=== PATIENT | female | born 1945 | race Caucasian/White ===

== ENCOUNTER → 2021-03-12 | Outpatient (CLI) | payer MEDICARE, OTHER ==
--- NOTE | 2021-03-12 16:31 | XR ---
EXAMINATION TYPE: XR cervical spine comp DATE OF EXAM: 03/12/2021 COMPARISON: None HISTORY: Cervicalgia TECHNIQUE: 5 view cervical spine FINDINGS: There is a grade 1 spondylolisthesis of C3 anteriorly on C4. Mild subluxation of C4 on C5 i s present. Posterior spinal lamellar line appears intact. There is loss of disc height at C4-5 C5-6 C 6-7. Anterior vertebral body spurring is present C4 and C5. Foraminal narrowing is noted to moderate degree at C4-5 on the left. Incidental note is made of vascular calcification left carotid region. IMPRESSION: 1. Advanced degenerative disc changes especially through the mid cervical spine. 2. Spondylolisthesis of C3 on C4 and milder C4 on C5.
== END | disposition home or self-care (01) ==
LOC: RADXRYALE 16:02
PROVIDERS: ATTEND Family Medicine
DX: M47.812 Spondylosis without myelopathy or radiculopathy, cervical region (principal); M43.12 Spondylolisthesis, cervical region
CPT/HCPCS: 72050

== ENCOUNTER 2021-11-21 16:23 | Inpatient (IN) | payer MEDICARE, OTHER ==
--- NOTE | 2021-11-21 16:42 | ED ---
Abdominal Pain HPI - General Chief Complaint: Abdominal Pain Stated Complaint: Abd pain Time Seen by Provider: 11/21/21 16:25 Source: patient, EMS, RN notes reviewed Mode of arrival: EMS Limitations: no limitations - History of Present Illness Initial Comments: 76-year-old female history of total abdominal hysterectomy who states she had acid yesterday of left-sided abdominal pain sharp in nature sometimes severe sometimes not now she states her hurts when she presses on the area. No overt fevers chills or sweats. She did have episodes nausea vomiting with it. She also has some diarrhea. Currently the pain is 0 unless she presses on it. She has of a family history diverticulitis with a sister and her dad. No other current complaints or modifying factors MD Complaint: abdominal pain - Related Data Allergies Allergy/AdvReac Type Severity Reaction Status Date / Time Iodinated Contrast Media Allergy Anaphylaxis Verified 11/21/21 16:37 Review of Systems ROS Statement: Those systems with pertinent positive or pertinent negative responses have been documented in the HPI. ROS Other: All systems not noted in ROS Statement are negative. Past Medical History History of Any Multi-Drug Resistant Organisms: None Reported Past Surgical History: Hysterectomy, Joint Replacement Additional Past Surgical History / Comment(s): total hysterectomy, bilat total knee replacements, Past Psychological History: No Psychological Hx Reported Smoking Status: Current every day smoker Past Alcohol Use History: Rare Past Drug Use History: None Reported General Exam - General Exam Comments Initial Comments: This is a well-developed well-nourished awake alert oriented 4 female Limitations: no limitations General appearance: alert, in no apparent distress Head exam: Present: atraumatic, normocephalic, normal inspection Eye exam: Present: normal appearance, PERRL, EOMI. Absent: scleral icterus, conjunctival injection, periorbital swelling ENT exam: Present: normal exam, mucous membranes moist Neck exam: Present: normal inspection. Absent: tenderness, meningismus, lymphadenopathy Respiratory exam: Present: normal lung sounds bilaterally. Absent: respiratory distress, wheezes, rales, rhonchi, stridor Cardiovascular Exam: Present: regular rate, normal rhythm, normal heart sounds. Absent: systolic murmur, diastolic murmur, rubs, gallop, clicks GI/Abdominal exam: Present: soft, tenderness (Left lower quadrant tenderness palpation with some voluntary guarding), normal bowel sounds. Absent: distended, guarding, rebound, rigid Rectal exam: Present: deferred Extremities exam: Present: normal inspection, full ROM, normal capillary refill. Absent: tenderness, pedal edema, joint swelling, calf tenderness Back exam: Present: normal inspection Neurological exam: Present: alert, oriented X3, CN II-XII intact Psychiatric exam: Present: normal affect, normal mood Skin exam: Present: warm, dry, intact, normal color. Absent: rash Course Vital Signs 11/21/21 11/21/21 11/21/21 16:24 17:00 18:00 Pulse Rate 79 72 67 Respiratory 18 20 18 Rate Blood Pressure 133/83 128/80 131/88 O2 Sat by Pulse 91 L 94 L 95 Oximetry Medical Decision Making - Medical Decision Making I did discuss findings with the patient family patient is demonstrating increased pain to the left lower quadrant area on further evaluation she states she was having pain with movement and upright positioning yesterday and today. She will be admitted for IV antibiotics and fluids. I did discuss the case with Dr. Trimble - Lab Data Result diagrams: 11/21/21 16:41 11/21/21 16:41 Lab Results 11/21/21 11/21/21 11/21/21 Range/Units 16:41 16:41 16:41 WBC 16.9 H (3.8-10.6) k/uL RBC 5.01 (3.80-5.40) m/uL Hgb 15.8 (11.4-16.0) gm/dL Hct 49.3 H (34.0-46.0) % MCV 98.4 (80.0-100.0) fL MCH 31.6 (25.0-35.0) pg MCHC 32.1 (31.0-37.0) g/dL RDW 13.0 (11.5-15.5) % Plt Count 246 (150-450) k/uL MPV 7.9 Neutrophils % 86 % Lymphocytes % 7 % Monocytes % 4 % Eosinophils % 2 % Basophils % 1 % Neutrophils # 14.6 H (1.3-7.7) k/uL Lymphocytes # 1.2 (1.0-4.8) k/uL Monocytes # 0.7 (0-1.0) k/uL Eosinophils # 0.3 (0-0.7) k/uL Basophils # 0.1 (0-0.2) k/uL PT 10.0 (9.0-12.0) sec INR 0.9 (<1.2) APTT 21.1 L (22.0-30.0) sec Sodium (137-145) mmol/L Potassium (3.5-5.1) mmol/L Chloride (98-107) mmol/L Carbon Dioxide (22-30) mmol/L Anion Gap mmol/L BUN (7-17) mg/dL Creatinine (0.52-1.04) mg/dL Est GFR (CKD-EPI)AfAm (>60 ml/min/1.73 sqM) Est GFR (CKD-EPI)NonAf (>60 ml/min/1.73 sqM) Glucose (74-99) mg/dL Plasma Lactic Acid Royer (0.7-2.0) mmol/L Calcium (8.4-10.2) mg/dL Total Bilirubin (0.2-1.3) mg/dL AST (14-36) U/L ALT (4-34) U/L Alkaline Phosphatase (38-126) U/L Troponin I (0.000-0.034) ng/mL Total Protein (6.3-8.2) g/dL Albumin (3.5-5.0) g/dL Amylase (30-110) U/L Lipase (23-300) U/L Urine Color Yellow Urine Appearance Cloudy H (Clear) Urine pH 5.5 (5.0-8.0) Ur Specific [place] 1.021 (1.001-1.035) Urine Protein Trace H (Negative) Urine Glucose (UA) Negative (Negative) Urine Ketones Negative (Negative) Urine Blood Trace H (Negative) Urine Nitrite Negative (Negative) Urine Bilirubin Negative (Negative) Urine Urobilinogen 2.0 (<2.0) mg/dL Ur Leukocyte Esterase Negative (Negative) Urine RBC 4 (0-5) /hpf Urine WBC 1 (0-5) /hpf Ur Squamous Epith Cells 4 (0-4) /hpf Urine Bacteria Occasional H (None) /hpf Hyaline Casts 34 H (0-2) /lpf Urine Mucus Rare H (None) /hpf 11/21/21 11/21/21 11/21/21 Range/Units 16:41 16:41 16:41 WBC (3.8-10.6) k/uL RBC (3.80-5.40) m/uL Hgb (11.4-16.0) gm/dL Hct (34.0-46.0) % MCV (80.0-100.0) fL MCH (25.0-35.0) pg MCHC (31.0-37.0) g/dL RDW (11.5-15.5) % Plt Count (150-450) k/uL MPV Neutrophils % % Lymphocytes % % Monocytes % % Eosinophils % % Basophils % % Neutrophils # (1.3-7.7) k/uL Lymphocytes # (1.0-4.8) k/uL Monocytes # (0-1.0) k/uL Eosinophils # (0-0.7) k/uL Basophils # (0-0.2) k/uL PT (9.0-12.0) sec INR (<1.2) APTT (22.0-30.0) sec Sodium 139 (137-145) mmol/L Potassium 3.9 (3.5-5.1) mmol/L Chloride 111 H (98-107) mmol/L Carbon Dioxide 19 L (22-30) mmol/L Anion Gap 9 mmol/L BUN 19 H (7-17) mg/dL Creatinine 0.83 (0.52-1.04) mg/dL Est GFR (CKD-EPI)AfAm 80 (>60 ml/min/1.73 sqM) Est GFR (CKD-EPI)NonAf 70 (>60 ml/min/1.73 sqM) Glucose 144 H (74-99) mg/dL Plasma Lactic Acid Royer 0.9 (0.7-2.0) mmol/L Calcium 8.3 L (8.4-10.2) mg/dL Total Bilirubin 0.5 (0.2-1.3) mg/dL AST 29 (14-36) U/L ALT 15 (4-34) U/L Alkaline Phosphatase 112 (38-126) U/L Troponin I <0.012 (0.000-0.034) ng/mL Total Protein 6.2 L (6.3-8.2) g/dL Albumin 3.8 (3.5-5.0) g/dL Amylase 54 (30-110) U/L Lipase 48 (23-300) U/L Urine Color Urine Appearance (Clear) Urine pH (5.0-8.0) Ur Specific [place] (1.001-1.035) Urine Protein (Negative) Urine Glucose (UA) (Negative) Urine Ketones (Negative) Urine Blood (Negative) Urine Nitrite (Negative) Urine Bilirubin (Negative) Urine Urobilinogen (<2.0) mg/dL Ur Leukocyte Esterase (Negative) Urine RBC (0-5) /hpf Urine WBC (0-5) /hpf Ur Squamous Epith Cells (0-4) /hpf Urine Bacteria (None) /hpf Hyaline Casts (0-2) /lpf Urine Mucus (None) /hpf - Radiology Data Radiology results: report reviewed (Imaging reviewed patient does demonstrate evidence of acute diverticulitis with evidence of diverticulitis with diverticulosis of the descending and sigmoid colon. No evidence of perforation.), image reviewed Disposition Clinical Impression: Diverticulitis, Abdominal pain, Dehydration Disposition: ADMITTED IP TO THIS [facility] Condition: Fair Referrals: Jose Nevarez DO [Primary Care Provider] - 1-2 days Decision Date: 11/21/21 Decision Time: 19:00
[2021-11-21 17:05] LABS: Basophils # (A) 0.1 k/uL (0-0.2); Basophils % (A) 1 %; Eosinophils # (A) 0.3 k/uL (0-0.7); Eosinophils % (A) 2 %; HCT 49.3 % (34.0-46.0); HGB 15.8 gm/dL (11.4-16.0); Lymphocytes # (A) 1.2 k/uL (1.0-4.8); Lymphocytes % (A) 7 %; MCH 31.6 pg (25.0-35.0); MCHC 32.1 g/dL (31.0-37.0); MCV 98.4 fL (80.0-100.0); Mean Platelet Volume 7.9; Monocytes # (A) 0.7 k/uL (0-1.0); Monocytes % (A) 4 %; Neutrophils # (A) 14.6 k/uL (1.3-7.7); Neutrophils % (A) 86 %; Platelet Count 246 k/uL (150-450); RBC 5.01 m/uL (3.80-5.40); WBC 16.9 k/uL (3.8-10.6)
[2021-11-21 17:20] LABS: Albumin 3.8 g/dL (3.5-5.0); Calcium 8.3 mg/dL (8.4-10.2); Potassium 3.9 mmol/L (3.5-5.1); Total Bilirubin 0.5 mg/dL (0.2-1.3); Total Protein 6.2 g/dL (6.3-8.2)
[2021-11-21 17:27] LABS: INR 0.9 (<1.2)
[2021-11-21 17:29] LABS: Appearance,Urine Cloudy (Clear); Bacteria,Urine Occasional /hpf; Bilirubin,Urine Negative (Negative); Blood,Urine Trace (Negative); Color,Urine Yellow; Glucose,Urine (UA) Negative (Negative); Hyaline Casts,Urine 34 /lpf (0-2); Ketones,Urine Negative (Negative); Leukocyte Esterase,Urine Negative (Negative); Mucus,Urine Rare /hpf; Nitrite,Urine Negative (Negative); PH, Urine 5.5 (5.0-8.0); Protein,Urine Trace (Negative); RBC,Urine 4 /hpf (0-5); Specific Gravity,Urine 1.021 (1.001-1.035); Squamous Epithelial Cell,Urine 4 /hpf (0-4); WBC,Urine 1 /hpf (0-5)
[2021-11-21 17:31] LABS: Partial Thromboplastin Time 21.1 sec (22.0-30.0)
--- NOTE | 2021-11-21 18:06 | CT ---
EXAMINATION TYPE: CT abdomen pelvis wo con CT DLP: 873.8 mGycm, Automated exposure control for dose reduction was used. DATE OF EXAM: 11/21/2021 5:45 PM COMPARISON: None. CLINICAL INDICATION:Female, 76 years old with history of abdominal pain, acute, nonlocalized; LT lowe r abdominal pain TECHNIQUE: Axial CT of the abdomen and pelvis. Sagittal and coronal reformats were created on a [employer] workstation. Contrast used: None Oral contrast used: without Oral Contrast FINDINGS: LOWER CHEST: Posterior dependent subsegmental atelectasis is noted. Atherosclerosis of the coronary a rteries partially visualized. ABDOMEN LIVER: Unremarkable GALLBLADDER AND BILE DUCTS: Unremarkable. PANCREAS: Unremarkable. SPLEEN: Unremarkable. ADRENAL GLANDS: Unremarkable. KIDNEYS AND URETERS: No evidence of hydronephrosis or renal calculus. The ureters are unremarkable. PELVIS BLADDER: Incompletely distended but grossly unremarkable. REPRODUCTIVE: The uterus is surgically absent. ABDOMEN & PELVIS STOMACH AND BOWEL: There is fat stranding changes around the sigmoid/descending colon junction with m ultiple colonic diverticula with out evidence of perforation or organizing fluid collection. Small hi atal hernia, duodenum is unremarkable. No evidence of bowel obstruction. PERITONEUM: No evidence of pneumoperitoneum or free fluid. VASCULATURE: Moderate atherosclerotic calcifications are present throughout the abdominal aorta and i ts branches. No evidence of aortic aneurysm. MUSCULOSKELETAL: No acute osseous abnormalities. Moderate disc degeneration changes are present throu ghout the thoracolumbar spine. LYMPH NODES: No gross evidence for lymphadenopathy. SOFT TISSUE/ABDOMINAL WALL: Unremarkable IMPRESSION: Uncomplicated sigmoid/descending colon junction diverticulitis.
[2021-11-21] MEDS ORDERED: LEVOFLOXACIN 750MG-D5W PMX 750 MG in DEXTROSE/WATER 1 150ML.BAG IVPB STA (18:47)
[2021-11-21] MEDS ORDERED: metroNIDAZOLE-NS PMX 500 MG in SALINE 1 100ML.BAG IVPB STA (18:47)
[2021-11-21] MEDS ORDERED: HYDROmorphone 0.5 MG/0.5 ML SYRINGE IVP PRN (19:18)
[2021-11-21] MEDS ORDERED: ONDANSETRON 4 MG/2 ML VIAL IVP PRN (19:18)
[2021-11-21] MEDS ORDERED: NALOXONE 0.4 MG/ML 1 ML VIAL IV PRN (19:18)
--- NOTE | 2021-11-21 22:17 | P.HPIM ---
History of Present Illness H&P Date: 11/21/21 The patient is a 76-year-old female with a PMH of hypertension who presents to the emergency room with complaints of abdominal pain. Patient reports that she initially noticed a left lower quadrant cramping yesterday night but did not think much of it. Throughout the day today however, the pain gradually worsened and she then developed nausea with 2 episodes of vomiting, which prompted her to come to the emergency room. Reports that the pain is better at the time of interview, no pain at rest, brought on with movement, nonradiating. Reports significant family history of diverticulitis in both her father and her sister. Denies ever being diagnosed herself with diverticulosis or having a bout of diverticulitis. Denied experiencing fever, chills, cough, diarrhea. CT abdomen and pelvis in the emergency room was consistent with diverticulitis. Laboratory evaluation was remarkable for leukocytosis of 16.9, and CO2 19. Review of systems: Pertinent positives and negatives as discussed in HPI, a complete review of systems was performed and all other systems are negative. Physical examination: General: non toxic, no distress, appears at stated age, obese Derm: no unusual rashes/lesions, warm Head: atraumatic, normocephalic, symmetric Eyes: EOMI, no lid lag, anicteric sclera, pupils equal round reactive to light ENT: Nose and ears atraumatic Neck: No cervical lymphadenopathy, trachea midline, supple Mouth: no lip lesion, mucus membranes moist Cardiovascular: S1S2 reg, no murmur, positive dorsalis pedis pulse bilateral, no edema Lungs: CTA bilateral, no rhonchi, no rales, no accessory muscle use Abdominal: soft, left lower quadrant tenderness, no guarding, no rebound tender ness noted Ext: muscle strength 5 out of 5 in all 4 extremities grossly, no gross muscle atrophy, no contractures, Neuro: CN II-XI grossly intact, no gross focal neuro deficits Psych: Alert, oriented, appropriate affect Assessment/plan Acute uncomplicated diverticulitis -Continue with Levaquin and Flagyl -Clear liquid diet -IVFs -Pain control Chronic conditions: Hypertension -Continue home meds DVT prophylaxis -Heparin subcu The patient is admitted with an anticipated greater than 2 midnight stay for evaluation of acute diverticulitis. CODE STATUS: Full Code Discussed with: Patient Anticipated discharge date: 11/[address]: Home Past Medical History History of Any Multi-Drug Resistant Organisms: None Reported Past Surgical History: Hysterectomy, Joint Replacement Additional Past Surgical History / Comment(s): total hysterectomy, bilat total knee replacements, Past Psychological History: No Psychological Hx Reported Smoking Status: Current every day smoker Past Alcohol Use History: Rare Past Drug Use History: None Reported - Past Family History Father Family Medical History: Skin Disorder Medications and Allergies Home Medications Medication Instructions Recorded Confirmed Type Cholecalciferol [Vitamin D3 (25 25 mcg PO DAILY 11/21/21 11/21/21 History Mcg = 1000 Iu)] Diclofenac Sodium Gel [Voltaren 1 applic TOPICAL QID PRN 11/21/21 11/21/21 History Gel] Diclofenac Sodium [Voltaren] 50 mg PO BID 11/21/21 11/21/21 History Lisinopril-Hctz 20-25 mg 0.5 tab PO DAILY 11/21/21 11/21/21 History [Zestoretic 20-25] Sertraline [Zoloft] 100 mg PO DAILY 11/21/21 11/21/21 History Vit C/E/Zn/Coppr/Lutein/Zeaxan 1 cap PO DAILY 11/21/21 11/21/21 History [Preservision Areds 2 Softgel] Allergies Allergy/AdvReac Type Severity Reaction Status Date / Time Iodinated Contrast Media Allergy Anaphylaxis Verified 11/21/21 21:22 Physical Exam Vitals: Vital Signs Pulse Resp BP Pulse Ox 11/21/21 18:00 67 18 131/88 95 11/21/21 17:00 72 20 128/80 94 L 11/21/21 16:24 79 18 133/83 91 L Intake and Output 11/21/21 11/21/21 11/21/21 06:59 14:59 22:59 Other: Weight 85.729 kg Results CBC & Chem 7: 11/21/21 16:41 11/21/21 16:41 Labs: Abnormal Lab Results - Last 24 Hours (Table) 11/21/21 11/21/21 11/21/21 Range/Units 16:41 16:41 16:41 WBC 16.9 H (3.8-10.6) k/uL Hct 49.3 H (34.0-46.0) % Neutrophils # 14.6 H (1.3-7.7) k/uL APTT 21.1 L (22.0-30.0) sec Chloride (98-107) mmol/L Carbon Dioxide (22-30) mmol/L BUN (7-17) mg/dL Glucose (74-99) mg/dL Calcium (8.4-10.2) mg/dL Total Protein (6.3-8.2) g/dL Urine Appearance Cloudy H (Clear) Urine Protein Trace H (Negative) Urine Blood Trace H (Negative) Urine Bacteria Occasional H (None) /hpf Hyaline Casts 34 H (0-2) /lpf Urine Mucus Rare H (None) /hpf 11/21/21 Range/Units 16:41 WBC (3.8-10.6) k/uL Hct (34.0-46.0) % Neutrophils # (1.3-7.7) k/uL APTT (22.0-30.0) sec Chloride 111 H (98-107) mmol/L Carbon Dioxide 19 L (22-30) mmol/L BUN 19 H (7-17) mg/dL Glucose 144 H (74-99) mg/dL Calcium 8.3 L (8.4-10.2) mg/dL Total Protein 6.2 L (6.3-8.2) g/dL Urine Appearance (Clear) Urine Protein (Negative) Urine Blood (Negative) Urine Bacteria (None) /hpf Hyaline Casts (0-2) /lpf Urine Mucus (None) /hpf
[2021-11-21] MEDS ORDERED: ACETAMINOPHEN TAB 325 MG TAB PO STA (22:49)
[2021-11-22] MEDS: HEPARIN SODIUM,PORCINE/PF 5,000 UNIT/0.5 ML SYRINGE SQ SCH ×2 (01:48→09:42)
[2021-11-22] MEDS: SODIUM CHLORIDE 0.9% 1,000 ML IV SCH ×3 (04:16→12:18)
[2021-11-22] MEDS: metroNIDAZOLE-NS PMX 500 MG in SALINE 1 100ML.BAG IVPB SCH ×2 (04:16→09:41)
[2021-11-22] MEDS ORDERED: LISINOPRIL-HCTZ 10-12.5 MG 1 EACH TAB PO SCH (09:00)
[2021-11-22] MEDS ORDERED: SERTRALINE 100 MG TAB PO SCH (09:00)
[2021-11-22 12:30] VITALS: BP 134/75; PULSE 69; RESP 17; TEMP 99.7
--- NOTE | 2021-11-22 13:01 | P.DS ---
Providers Date of admission: 11/21/21 19:18 Expected date of discharge: 11/22/21 Attending physician: Juan Miguel Trimble MD [facility] Course: Acute uncomplicated diverticulitis Hypertension The patient is a 76-year-old female with a PMH of hypertension who presents to the emergency room with complaints of abdominal pain. CT abdomen and pelvis in the emergency room was consistent with diverticulitis. Laboratory evaluation was remarkable for leukocytosis of 16.9, and CO2 19. Patient was admitted for IV antibiotics. However, by the following day patient improved much faster than anticipated. She was tolerating a diet and her pain had improved. Therefore, she was discharged with oral antibiotics for a total 7 day course and plans to follow-up with primary care physician. Gen: awake, alert HEENT: normocephalic, atraumatic, good hearing acuity, moist mucous membranes Resp: good air exchange, breathing comfortably with no accessory muscle use CVS: good distal perfusion x 4, GI: soft, left lower quadrant pain, ND : no SPT, no CVAT, linton catheter not present MSK: no pitting edema, no clubbing Neuro: non-focal, moving all extremities Psych: cooperative, euthymic mood Patient Condition at Discharge: Good Plan - Discharge Summary Discharge Rx Participant: No New Discharge Prescriptions: New Acetaminophen Tab [Tylenol Tab] 1,000 mg PO Q6HR PRN #28 tablet PRN Reason: Pain metroNIDAZOLE [Flagyl] 500 mg PO TID 7 Days #21 tab levoFLOXacin 750 mg PO DAILY 7 Days #7 tab Continue Cholecalciferol [Vitamin D3 (25 Mcg = 1000 Iu)] 25 mcg PO DAILY Sertraline [Zoloft] 100 mg PO DAILY Diclofenac Sodium Gel [Voltaren Gel] 1 applic TOPICAL QID PRN PRN Reason: Pain Vit C/E/Zn/Coppr/Lutein/Zeaxan [Preservision Areds 2 Softgel] 1 cap PO DAILY Lisinopril-Hctz 20-25 mg [Zestoretic 20-25] 0.5 tab PO DAILY Discontinued Diclofenac Sodium [Voltaren] 50 mg PO BID Discharge Medication List Cholecalciferol [Vitamin D3 (25 Mcg = 1000 Iu)] 25 mcg PO DAILY 11/21/21 [History] Diclofenac Sodium Gel [Voltaren Gel] 1 applic TOPICAL QID PRN 11/21/21 [History] Lisinopril-Hctz 20-25 mg [Zestoretic 20-25] 0.5 tab PO DAILY 11/21/21 [History] Sertraline [Zoloft] 100 mg PO DAILY 11/21/21 [History] Vit C/E/Zn/Coppr/Lutein/Zeaxan [Preservision Areds 2 Softgel] 1 cap PO DAILY 11/21/21 [History] Acetaminophen Tab [Tylenol Tab] 1,000 mg PO Q6HR PRN #28 tablet 11/22/21 [Rx] levoFLOXacin 750 mg PO DAILY 7 Days #7 tab 11/22/21 [Rx] metroNIDAZOLE [Flagyl] 500 mg PO TID 7 Days #21 tab 11/22/21 [Rx] Follow up Appointment(s)/Referral(s): Jose Nevarez DO [Primary Care Provider] - 1-2 days Discharge Disposition: HOME SELF-CARE
[2021-11-22] MEDS ORDERED: LEVOFLOXACIN 750MG-D5W PMX 750 MG in DEXTROSE/WATER 1 150ML.BAG IVPB SCH (18:00)
== END 2021-11-22 14:25 | disposition home or self-care (01) | DRG 392 ==
LOC: EC 16:23 → 4SSUR 19:18 → 5NMEDONC 11-22 07:31
PROVIDERS: ADMIT Internal Medicine; ATTEND Internal Medicine
DX: K57.32 Diverticulitis of large intestine without perforation or abscess without bleeding (principal); E86.0 Dehydration; I10 Essential (primary) hypertension; Z96.653 Presence of artificial knee joint, bilateral; F17.210 Nicotine dependence, cigarettes, uncomplicated; Z91.041 Radiographic dye allergy status; Z90.710 Acquired absence of both cervix and uterus; Z79.899 Other long term (current) drug therapy; Z83.79 Family history of other diseases of the digestive system
CPT/HCPCS: 36415; 74176; 80053; 81001; 82150; 83605; 83690; 84484; 85025; 85610; 85730; 87040; 96365; 96366; 96367; 96368; 96372; 96375; 99285

== ENCOUNTER → 2022-11-22 | Outpatient (CLI) | payer MEDICARE, OTHER ==
--- NOTE | 2022-11-22 12:19 | XR ---
EXAMINATION TYPE: XR foot complete bilateral, XR ankle complete bilateral DATE OF EXAM: 11/22/2022 12:01 PM INDICATION: Patient age:Female; 77 years old; Reason for study: [id number] NISHANT ANKLE/FOOT PAIN; [facility]. COMPARISON: Right foot radiograph 12/30/2014 TECHNIQUE: Both feet and ankles were examined in AP, oblique, and lateral projections. FINDINGS: No evidence of any acute osseous pathology. Ankle mortise is intact bilaterally. No osseous erosions. No evidence of soft tissue swelling. Joints are preserved. No radiopaque foreign body.Small to moder ate sized bilateral plantar calcaneal enthesophytes. IMPRESSION: No evidence of acute fracture.
== END | disposition home or self-care (01) ==
LOC: RADXRYALE 11:05
PROVIDERS: ATTEND Family Medicine
DX: M25.571 Pain in right ankle and joints of right foot (principal); M25.572 Pain in left ankle and joints of left foot